=== PATIENT | male | born 1965 | race Caucasian/White ===

== ENCOUNTER 2016-05-09 17:02 | Emergency (ER) | payer MEDICAID, OTHER ==
[~2016-05-09] VITALS: Ht 177.8 cm; Wt 88.5 kg
[2016-05-09 17:11] VITALS: BP 112/67
[2016-05-09 17:34] LABS: Basophils # (auto) 0.1 uL; Basophils % (auto) 0.6 % (0.0-2.0); Eosinophils # (auto) 0.3 uL; Eosinophils % (auto) 3.6 % (0.0-7.0); Hematocrit 48.7 % (41.0-53.0); Hemoglobin 16.7 g/dL (13.5-17.5); Lymphocytes # (auto) 2.5 uL; Lymphocytes % (auto) 27.6 % (10.0-50.0); Mean Corpuscular Hemoglobin 31.4 pg (28.0-32.0); Mean Corpuscular Hgb Conc. 34.3 g/dL (32.0-36.0); Mean Corpuscular Volume 91.5 fL (80.0-100.0); Mean Platelet Volume 7.6 fL (7.4-10.4); Monocytes # (auto) 0.5 uL; Monocytes % (auto) 5.5 % (0.0-12.0); Neutrophils # (auto) 5.6 uL; Neutrophils % (auto) 62.7 % (37.0-80.0); Platelet Count (auto) 303 10^3/uL (140-450)
[2016-05-09 17:56] LABS: Albumin 3.5 g/dL (3.4-5.0); BUN/Creatinine Ratio 11.2; Calcium 7.6 mg/dL (8.5-10.1); Potassium 3.7 mmol/L (3.5-5.1)
[2016-05-09 17:57] LABS: Bilirubin, Total 0.3 mg/dL (0.2-1.0); Total Protein 7.3 g/dL (6.4-8.2)
== END 2016-05-10 03:22 | disposition left against medical advice (07) ==
LOC: EDBD 17:02 → ER 17:07
DX: R10.9 Unspecified abdominal pain (principal); Z53.21 Procedure and treatment not carried out due to patient leaving prior to being seen by health care provider
CPT/HCPCS: 36415; 80053; 85025; 85049

== ENCOUNTER 2016-12-15 11:29 | Inpatient (IN) | payer MEDICAID ==
[~2016-12-15] VITALS: Ht 177.8 cm; Wt 87.2 kg
[2016-12-15] MEDS ORDERED: SODIUM CHLORIDE 0.9% 1,000 ML IV ONE (11:49)
[2016-12-15 12:24] LABS: Basophils # (auto) 0.1 uL; Basophils % (auto) 0.9 % (0.0-2.0); CONDITION Y; Eosinophils # (auto) 0.2 uL; Eosinophils % (auto) 2.4 % (0.0-7.0); Hematocrit 46.2 % (41.0-53.0); Hemoglobin 15.8 g/dL (13.5-17.5); Lymphocytes # (auto) 1.6 uL; Lymphocytes % (auto) 15.8 % (10.0-50.0); Mean Corpuscular Hemoglobin 32.5 pg (28.0-32.0); Mean Corpuscular Hgb Conc. 34.2 g/dL (32.0-36.0); Mean Corpuscular Volume 95.1 fL (80.0-100.0); Mean Platelet Volume 7.6 fL (7.4-10.4); Monocytes # (auto) 0.6 uL; Neutrophils # (auto) 7.5 uL; Neutrophils % (auto) 74.9 % (37.0-80.0); Platelet Count (auto) 328 10^3/uL (140-450); Red Cell Distribution Width 15.3 % (11.6-16.0)
[2016-12-15 12:44] LABS: INR 0.94 (0.9-1.15)
[2016-12-15 13:03] LABS: Albumin 3.4 g/dL (3.4-5.0); Alkaline Phosphatase 77 U/L (45-117); Anion Gap 5 (5-15); Aspartate Aminotransferase 26 U/L (15-37); BUN/Creatinine Ratio 20.2; Bilirubin, Total 0.5 mg/dL (0.2-1.0); Blood Urea Nitrogen 17 mg/dL (7-18); Carbon Dioxide 26 mmol/L (21-32); Chloride 109 mmol/L (98-107); GFR African American 125 mL/min; GFR Non-African American 103 mL/min; Glucose 89 mg/dL (74-106); Magnesium 2.6 mg/dL (1.6-2.6); Potassium 3.9 mmol/L (3.5-5.1); Sodium 140 mmol/L (136-145); Total Protein 6.9 g/dL (6.4-8.2)
[2016-12-15] MEDS ORDERED: SODIUM CHLORIDE 0.9% 1,000 ML IV SCH (13:30)
[2016-12-15] MEDS ORDERED: ASPirin 81 mg TAB PO ONE (13:30)
[2016-12-15] MEDS ORDERED: NITROGLYCERIN 0.4 MG SL TAB SL PRN (13:30)
[2016-12-15] MEDS ORDERED: MORPHINE SULF INJ 2 MG/ML SYRINGE 1ML IV PRN (13:30)
[2016-12-15] MEDS ORDERED: ALPRAZolam 0.25 MG TAB PO PRN (13:30)
[2016-12-15] MEDS ORDERED: METOPROLOL TARTRATE 25 MG TAB PO ONE (14:00)
[2016-12-15] MEDS ORDERED: FAMOTIDINE 20 MG TAB PO ONE (14:00)
[2016-12-15 15:22] VITALS: BP 129/81
[2016-12-15 17:00] VITALS: BP 131/80
[2016-12-15] MEDS ORDERED: METOPROLOL TARTRATE 25 MG TAB PO SCH (22:00)
[2016-12-15] MEDS ORDERED: ATORVASTATIN 20 MG TAB PO SCH (22:00)
[2016-12-16] MEDS ORDERED: ASPirin 81 mg TAB PO SCH (10:00)
[2016-12-16] MEDS ORDERED: FAMOTIDINE 20 MG TAB PO SCH (10:00)
== END 2016-12-15 18:50 | disposition left against medical advice (07) | DRG 198 ==
LOC: EDBD 11:29 → ER 11:29 → TELE 11:30 → EDUNIT# 11:30 → TELE-E-ADS 14:39 → TELE-EAST 16:23
PROVIDERS: ADMIT Internal Medicine; ATTEND Internal Medicine
DX: I25.10 Atherosclerotic heart disease of native coronary artery without angina pectoris (principal); F41.9 Anxiety disorder, unspecified; F17.210 Nicotine dependence, cigarettes, uncomplicated; Z53.21 Procedure and treatment not carried out due to patient leaving prior to being seen by health care provider; Z82.49 Family history of ischemic heart disease and other diseases of the circulatory system; Z87.442 Personal history of urinary calculi; Z88.5 Allergy status to narcotic agent
CPT/HCPCS: 36415; 71010; 76775; 80053; 83735; 84484; 85025; 85379; 85610; 85730; 94761; 96360; 96361